=== PATIENT | female | born 1930 | race Two or more races ===

== ENCOUNTER 2017-01-22 18:54 | Observation (INO) | payer OTHER ==
[~2017-01-22] VITALS: Ht 162.6 cm; Wt 68.0 kg
[2017-01-22 20:12] LABS: Basophils # (auto) 0.1 uL; Basophils % (auto) 0.7 % (0.0-2.0); CONDITION Y; Eosinophils # (auto) 0.5 uL; Eosinophils % (auto) 5.7 % (0.0-7.0); Hematocrit 38.3 % (36.0-46.0); Hemoglobin 13.1 g/dL (12.2-16.2); Lymphocytes # (auto) 1.9 uL; Lymphocytes % (auto) 22.3 % (10.0-50.0); Mean Corpuscular Hemoglobin 30.8 pg (28.0-32.0); Mean Corpuscular Hgb Conc. 34.3 g/dL (32.0-36.0); Mean Platelet Volume 8.8 fL (7.4-10.4); Monocytes # (auto) 0.6 uL; Monocytes % (auto) 7.4 % (0.0-12.0); Neutrophils # (auto) 5.6 uL; Neutrophils % (auto) 63.9 % (37.0-80.0); Platelet Count (auto) 223 10^3/uL (140-450); Red Cell Distribution Width 13.5 % (11.6-16.0); White Blood Cell 8.7 10^3/uL (4.4-10.8)
[2017-01-22 20:36] LABS: Albumin 3.6 g/dL (3.4-5.0); Anion Gap 16 (5-15); Aspartate Aminotransferase 17 U/L (15-37); BUN/Creatinine Ratio 14.5; Blood Urea Nitrogen 11 mg/dL (7-18); Calcium 8.8 mg/dL (8.5-10.1); Carbon Dioxide 29 mmol/L (21-32); Chloride 105 mmol/L (98-107); GFR African American 93 mL/min; GFR Non-African American 77 mL/min; Glucose 95 mg/dL (74-106); Sodium 150 mmol/L (136-145)
[2017-01-22 20:39] LABS: Alkaline Phosphatase 78 U/L (45-117); Total Protein 6.5 g/dL (6.4-8.2)
[2017-01-22 20:55] LABS: Salicylate 2.3 mg/dL (2.8-20.0)
[2017-01-22 20:57] LABS: Acetaminophen < 2.0 ug/mL (10-30)
[2017-01-22 21:00] LABS: Urine Bilirubin Negative (Negative); Urine Blood Negative /uL (Negative); Urine Color Yellow (Yellow); Urine Glucose Normal (Normal); Urine Ketone Negative (Negative); Urine Nitrite Negative (Negative); Urine RBC <1 /hpf (0 - 4); Urine Urobilinogen Normal (Negative)
[2017-01-22] MEDS ORDERED: NITROFURANTOIN (MONO) 100 mg CAP PO ONE (22:30)
[2017-01-23 01:38] LABS: Basophils # (auto) 0.1 uL; CONDITION Y; Eosinophils # (auto) 0.4 uL; Hematocrit 39.1 % (36.0-46.0); Hemoglobin 13.1 g/dL (12.2-16.2); Lymphocytes # (auto) 1.5 uL; Lymphocytes % (auto) 16.8 % (10.0-50.0); Mean Corpuscular Hemoglobin 30.3 pg (28.0-32.0); Mean Corpuscular Hgb Conc. 33.5 g/dL (32.0-36.0); Mean Corpuscular Volume 90.4 fL (80.0-100.0); Mean Platelet Volume 8.4 fL (7.4-10.4); Monocytes # (auto) 0.6 uL; Monocytes % (auto) 6.9 % (0.0-12.0); Neutrophils # (auto) 6.1 uL; Neutrophils % (auto) 70.3 % (37.0-80.0); Platelet Count (auto) 234 10^3/uL (140-450); Red Cell Distribution Width 13.7 % (11.6-16.0); White Blood Cell 8.7 10^3/uL (4.4-10.8)
[2017-01-23 02:04] LABS: Albumin 3.5 g/dL (3.4-5.0); Calcium 8.2 mg/dL (8.5-10.1)
[2017-01-23 02:06] LABS: Bilirubin, Total 6.3 mg/dL (0.2-1.0); Total Protein 6.6 g/dL (6.4-8.2)
[2017-01-23 04:15] VITALS: BP 140/74
== END 2017-01-23 05:05 | disposition home or self-care (01) | DRG 641 ==
LOC: EDBD 18:54 → ER 19:01 → OVERFLOW 20:30 → ER 01-23 03:42
PROVIDERS: ADMIT Emergency Medicine; ATTEND Emergency Medicine
DX: E87.0 Hyperosmolality and hypernatremia (principal); N39.0 Urinary tract infection, site not specified; F41.9 Anxiety disorder, unspecified; F32.9 Major depressive disorder, single episode, unspecified; R51 Headache; I70.0 Atherosclerosis of aorta
CPT/HCPCS: 36415; 71010; 80053; 80307; 80320; 80329; 81001; 82962; 85025; 93005; 99285; G0378

== ENCOUNTER 2019-03-08 20:18 | Emergency (ER) | payer OTHER ==
[~2019-03-08] VITALS: Ht 147.3 cm; Wt 90.7 kg
[2019-03-08] MEDS ORDERED: LORazepam 2MG/ML-1ML VIAL IV ONE (21:15)
[2019-03-08 22:09] LABS: Albumin 3.7 g/dL (3.4-5.0); Anion Gap 11 (5-15); Blood Urea Nitrogen 18 mg/dL (7-18); Calcium 8.9 mg/dL (8.5-10.1); Carbon Dioxide 22 mmol/L (21-32); Chloride 112 mmol/L (98-107); Glucose 93 mg/dL (74-106); Magnesium 2.2 mg/dL (1.6-2.6); Potassium 3.9 mmol/L (3.5-5.1); Sodium 145 mmol/L (136-145)
[2019-03-08 22:14] LABS: Basophils # (auto) 0.1 uL; Basophils % (auto) 0.9 % (0.0-2.0); Eosinophils # (auto) 0.2 uL; Eosinophils % (auto) 2.7 % (0.0-7.0); Hematocrit 40.2 % (36.0-46.0); Hemoglobin 13.8 g/dL (12.2-16.2); INR < 0.93 (0.9-1.15); Lymphocytes # (auto) 1.8 uL; Lymphocytes % (auto) 19.5 % (10.0-50.0); Mean Corpuscular Hemoglobin 30.7 pg (28.0-32.0); Mean Corpuscular Hgb Conc. 34.4 g/dL (32.0-36.0); Mean Corpuscular Volume 89.2 fL (80.0-100.0); Monocytes # (auto) 0.7 uL; Monocytes % (auto) 7.8 % (0.0-12.0); Neutrophils # (auto) 6.3 uL; Neutrophils % (auto) 69.1 % (37.0-80.0); Nucleated Red Blood Cells % 0.1 %; Partial Thromboplastin Time 27.4 sec (23.64-32.05); Platelet Count (auto) 211 10^3/uL (140-450); Red Cell Distribution Width 13.8 % (11.8-14.3); White Blood Cell 9.1 10^3/uL (4.4-10.8)
[2019-03-08 22:17] LABS: Alanine Aminotransferase 19 U/L (13-56); Alkaline Phosphatase 96 U/L (45-117); Aspartate Aminotransferase 20 U/L (15-37); BUN/Creatinine Ratio 21.4; Bilirubin, Total 0.3 mg/dL (0.2-1.0); GFR African American 83 mL/min; GFR Non-African American 68 mL/min; Total Protein 7.6 g/dL (6.4-8.2)
[2019-03-08] MEDS ORDERED: THIAMINE INJ 100 MG in SODIUM CHLORIDE 0.9% 1,000 ML IV ONE (23:15)
[2019-03-09] MEDS ORDERED: THIAMINE 100mg/ml INJ (200mg/2ml VIAL) ONE (02:38)
[2019-03-09 06:20] VITALS: BP 140/78
== END 2019-03-09 07:06 | disposition home or self-care (01) ==
LOC: EDBD 20:18 → ER 20:21
DX: S52.531A Colles' fracture of right radius, initial encounter for closed fracture (principal); S16.1XXA Strain of muscle, fascia and tendon at neck level, initial encounter; S00.83XA Contusion of other part of head, initial encounter; R55 Syncope and collapse; F10.129 Alcohol abuse with intoxication, unspecified; Z88.1 Allergy status to other antibiotic agents; Z88.8 Allergy status to other drugs, medicaments and biological substances; W18.39XA Other fall on same level, initial encounter; Y93.89 Activity, other specified; Y99.8 Other external cause status; Y92.89 Other specified places as the place of occurrence of the external cause
CPT/HCPCS: 29125; 36415; 70450; 72125; 73100; 80053; 80320; 83735; 84484; 85025; 85610; 85730; 93005; 94761; 96365; 96366; 96375; 99284; J2060; J3411; J7030

== ENCOUNTER 2022-02-03 11:10 | Emergency (ER) | payer OTHER ==
[~2022-02-03] VITALS: Ht 170.2 cm; Wt 65.9 kg
[2022-02-03] MEDS ORDERED: SODIUM CHLORIDE 0.9% 1,000 ML IV ONE (11:15)
[2022-02-03 12:33] LABS: Basophils # (auto) 0 10 ^3/uL (0-0.2); Basophils % (auto) 0.5 % (0.0-2.0); Eosinophils # (auto) 0.2 10 ^3/uL (0-0.8); Eosinophils % (auto) 2.2 % (0.0-7.0); Hematocrit 39.2 % (36.0-46.0); Hemoglobin 12.8 g/dL (12.2-16.2); Lymphocytes # (auto) 1.4 10 ^3/uL (0.4-5.4); Lymphocytes % (auto) 16.9 % (10.0-50.0); Mean Corpuscular Hemoglobin 29.1 pg (28.0-32.0); Mean Corpuscular Hgb Conc. 32.5 g/dL (32.0-36.0); Mean Corpuscular Volume 89.3 fL (80.0-100.0); Monocytes # (auto) 0.6 10 ^3/uL (0-1.3); Monocytes % (auto) 7.6 % (0.0-12.0); Neutrophils # (auto) 6.1 10 ^3/uL (1.6-8.6); Neutrophils % (auto) 72.8 % (37.0-80.0); Red Blood Cells 4.39 10^6/uL (4.0-5.20); Red Cell Distribution Width 14.5 % (11.8-14.3); White Blood Cell 8.4 10^3/uL (4.4-10.8)
[2022-02-03 12:42] LABS: Chloride 110 mmol/L (98-107); Sodium 144 mmol/L (136-145)
[2022-02-03 12:50] LABS: Alanine Aminotransferase 59 U/L (13-56); Albumin 2.9 g/dL (3.4-5.0); Alkaline Phosphatase 106 U/L (45-117); Anion Gap 6 (5-15); Aspartate Aminotransferase 43 U/L (15-37); BUN/Creatinine Ratio 43.1; Bilirubin, Total 0.3 mg/dL (0.2-1.0); Blood Alcohol < 3.0 mg/dL (0-5); Blood Urea Nitrogen 31 mg/dL (7-18); Calcium 9.4 mg/dL (8.5-10.1); Carbon Dioxide 28 mmol/L (21-32); GFR African American 98 mL/min; GFR Non-African American 81 mL/min; Glucose 138 mg/dL (74-106); Total Protein 7.8 g/dL (6.4-8.2)
[2022-02-03 14:03] LABS: Urine Bacteria MOD /hpf (None Seen); Urine Blood Negative /uL (Negative); Urine Hyaline Cast FEW /lpf (0 - 2); Urine Mucus FEW (None Seen); Urine Specific Gravity 1.021 (1.001-1.035); Urine WBC 77 /hpf (0 - 5)
[2022-02-03] MEDS ORDERED: NITR-87 PO (14:19)
[2022-02-03] MEDS ORDERED: cefTRIAXone 1GM/50ML D5W 50 ML IV ONE (14:30)
[2022-02-03 15:14] VITALS: BP 155/83
== END 2022-02-03 15:14 | disposition home or self-care (01) ==
LOC: EDUNIT# 11:10 → EDBD 11:10 → ER 11:10
DX: F03.90 Unspecified dementia, unspecified severity, without behavioral disturbance, psychotic disturbance, mood disturbance, and anxiety (principal); Z88.1 Allergy status to other antibiotic agents; Z88.8 Allergy status to other drugs, medicaments and biological substances
CPT/HCPCS: 36415; 70450; 71045; 80053; 80320; 81001; 82962; 84484; 85025; 87086; 87088; 87186; 96361; 96365; 99285; J0696; J7030